=== PATIENT | male | born 1995 | race Hispanic/Latino ===

== ENCOUNTER 2018-04-29 11:20 | Emergency (ER) | payer SELFPAY ==
[2018-04-29] MEDS ORDERED: Ketorolac Tromethamine 60 MG/2 ML VIAL ONE (11:57)
--- NOTE | 2018-04-29 12:53 | RAD ---
PORTABLE CHEST 1 VIEW: DATE: 04/29/2018. TIME: 11:58 a.m. HISTORY: Chest pain. FINDINGS: The heart size is normal. The lungs are clear. The bony thorax is normal. IMPRESSION: Normal exam. POS: [facility]
== END 2018-04-29 12:07 | disposition home or self-care (01) ==
LOC: ERS 11:20
DX: R07.89 Other chest pain (principal)
CPT/HCPCS: 71045; 93005; 96372; J1885